=== PATIENT | male | born 1995 | race Caucasian/White ===

== ENCOUNTER 2020-10-18 15:04 | Emergency (ER) | payer SELFPAY ==
[2020-10-18] MEDS ORDERED: TRAMADOL HCL50 MG PO (17:08)
== END 2020-10-18 17:36 | disposition home or self-care (01) ==
LOC: FER 15:04
DX: S63.294A Dislocation of distal interphalangeal joint of right ring finger, initial encounter (principal); F17.210 Nicotine dependence, cigarettes, uncomplicated; W22.8XXA Striking against or struck by other objects, initial encounter
CPT/HCPCS: 73130